=== PATIENT | male | born 1990 | race Two or more races ===

== ENCOUNTER 2023-05-25 02:29 | Emergency (ER) | payer SELFPAY ==
[~2023-05-25] VITALS: Ht 167.6 cm; Wt 75.0 kg
[2023-05-25 02:44] VITALS: BP 141/91; PULSE 98; RESP 18; TEMP 98.1
== END 2023-05-25 02:54 ==
LOC: EMS 02:31
DX: F10.129 Alcohol abuse with intoxication, unspecified (principal); J45.909 Unspecified asthma, uncomplicated
CPT/HCPCS: 99283